=== PATIENT | female | born 1990 | race Caucasian/White ===

== ENCOUNTER → 2016-07-01 | Outpatient (CLI) | payer OTHER ==
--- NOTE | 2016-07-01 20:03 | REP ---
SOFT TISSUE ULTRASOUND CHEST WALL: 07/01/2016. Clinical history: Palpable lump right mid back, suspect lipoma, tender 2 to 3 cm size. Sonographic evaluation of the posterior chest wall in the region of the reported palpable finding shows slightly thicker right than left chest wall musculature. Subcutaneous fat thickness is unchanged on either side. No signal abnormality in the muscles of the chest wall on this study. Impression: 1. No discrete mass sonographically. I do not see an encapsulated lipoma although an infiltrative lipoma could be present and palpable, but not visible sonographically. Only minimal increased thickness of the posterior chest wall muscle layer, right compared to left (less than 1 mm difference). If you have high suspicion for soft tissue mass of a questionable nature, MRI without and with contrast may be appropriate. Signed by Wilberto Nieves MD 07/01/2016 08:21 P
== END ==
LOC: M RAD 17:50
PROVIDERS: ATTEND Family Medicine
DX: D17.1 Benign lipomatous neoplasm of skin and subcutaneous tissue of trunk (principal)

== ENCOUNTER → 2016-07-27 | Outpatient (CLI) | payer OTHER ==
--- NOTE | 2016-07-27 12:21 | REP ---
NUCLEAR GASTRIC EMPTYING SCAN: Following the intravenous administration of 1.1 mCi technetium 99m sulfur colloid in two scrambled eggs with 6 ounces of water, multiple images of the upper abdomen are performed in the anterior and posterior projections for 90 minutes. The gastric activity is measured, and the gastric emptying time is calculated. At the end of 90 minutes, 42% of the ingested activity has emptied from the stomach. T1/2 is 111 minutes. Gastric emptying is mildly delayed with a normal t1/2, 90 minutes. IMPRESSION: Gastric emptying mildly delayed. T1/2 is 111 minutes, which is above normal of 90 minutes. Signed by Lionel Chiu MD 07/27/2016 12:32 P
== END ==
LOC: M RAD 08:49
PROVIDERS: ATTEND Physician Assistant Medical
DX: R11.0 Nausea (principal)

== ENCOUNTER → 2016-07-29 | Outpatient (CLI) | payer OTHER ==
[~2016-07-29] MED LIST: BENA25CA4 PO; DEXI60CA PO; MICR1TAB10 PO; NORT50CA PO; PROBCAP4 PO; RANI300T PO; TRAZ100T4 PO; ZYRT10CA PO
--- NOTE | 2016-07-29 13:05 | REP ---
MRI RIGHT CHEST WALL WITH AND WITHOUT CONTRAST: TECHNIQUE: Coronal T2 fat sat, sagittal T2 STIR, axial T2 fat sat, coronal T1, axial T1 fat sat, coronal T1 fat sat, post IV gadolinium axial and sagittal T1 fat sat with the intravenous administration of 14 mL gadolinium. Reportedly there is a palpable abnormality in the posterior chest wall at the medial border or the scapula. The area is marked on the skin. There is no underlying abnormal signal in the soft tissues. I do not see evidence of a cystic or solid mass. There is abnormal enhancement. IMPRESSION: No MR evidence of soft tissue mass at the site of the reported palpable abnormality. Signed by Lionel Chiu MD 07/29/2016 01:22 P
== END ==
LOC: M RAD 10:53
PROVIDERS: ATTEND Surgery
DX: D17.20 Benign lipomatous neoplasm of skin and subcutaneous tissue of unspecified limb (principal)

== ENCOUNTER → 2016-08-03 | Outpatient (CLI) | payer OTHER ==
[~2016-08-03] MED LIST changes: +E-Z-GAS II EFFERVESCENT PACKET (SODIUM BICARB./CITRIC ACID/SIMETHICONE) As Ordered ONE; +E-Z-HD 98% w/w 340GM SUSP BTL As Ordered ONE; +PANT40TA2 PO
--- NOTE | 2016-08-03 17:33 | REP ---
Esophagram The procedure was performed under the direct supervision of Dr. Nieves. The images were reviewed with Dr. Nieves. A single view PA chest x-ray is submitted as a shank rander film. The superior mediastinal structures are midline. The heart size is within normal limits. The lungs are clear. Liquid barium and gas producing granules were given in the erect position as well as liquid barium in the prone oblique positions in order to perform a double contrast esophagram examination. The oral and pharyngeal stages of deglutition are unremarkable. Esophageal transport is prompt and efficient and there is no esophagitis, stricture, mucosal ring or hiatal hernia. Gastroesophageal reflux is not demonstrated on this examination. Impression: essentially unremarkable double contrast esophagram examination. 47 seconds of fluoro time was utilized for this procedure. Reviewed by NAZ 08/03/2016 03:54 PSigned by Wilberto Nieves MD 08/03/2016 05:24 P
== END ==
LOC: M RAD 09:25
PROVIDERS: ATTEND Physician Assistant Medical
DX: R13.10 Dysphagia, unspecified (principal)

== ENCOUNTER → 2016-08-06 | Outpatient (CLI) | payer OTHER ==
[~2016-08-06] VITALS: Ht 177.8 cm; Wt 72.8 kg
[~2016-08-06] MED LIST changes: -E-Z-GAS II EFFERVESCENT PACKET (SODIUM BICARB./CITRIC ACID/SIMETHICONE) As Ordered ONE; -E-Z-HD 98% w/w 340GM SUSP BTL As Ordered ONE; +LIDOCAINE 2% INJ 100 MG/5 ML SDV (FOR ANES.) As Ordered ONE; +NS 1,000 ML IV SCH; +PROPOFOL 200 MG/20 ML VIAL As Ordered ONE
--- NOTE | 2016-08-06 10:35 | ROOR ---
Patient Name: Ryann Hazel Procedure Date: 08/06/2016 10:12 AM Date of : 1990 Age: 25 Room: [facility] Gender: Female Note Status: Finalized Procedure: Upper GI endoscopy Indications: Functional Dyspepsia, Dysphagia, Nausea Providers: Arthur HILL MD Referring MD: BRENDAN TORO MD Requesting Provider: Medicines: Monitored Anesthesia Care Complications: No immediate complications. Procedure: Pre-Anesthesia Assessment: - The heart rate, respiratory rate, oxygen saturations, blood pressure, adequacy of pulmonary ventilation, and response to care were monitored throughout the procedure. The Endoscope was introduced through the mouth, and advanced to the second part of duodenum. The upper GI endoscopy was accomplished without difficulty. The patient tolerated the procedure well. Findings: The examined esophagus was normal. This was biopsied with a cold forceps for evaluation of eosinophilic esophagitis. No endoscopic abnormality was evident in the esophagus to explain the patient's complaint of dysphagia. It was decided, however, to proceed with dilation of the entire esophagus. The scope was withdrawn. Dilation was performed with a Gauthier dilator with mild resistance at 54 Fr. The dilation site was examined following endoscope reinsertion and showed no change. Minimal inflammation was found in the gastric antrum. Biopsies were taken with a cold forceps for Helicobacter pylori testing. The exam was otherwise without abnormality. Note is made of a large/compliant stomach on endoscopy. While in itself this is not a significant finding, but it may sometimes be seen with gastroparesis. Impression: - Normal esophagus. Biopsied. - No endoscopic esophageal abnormality to explain patient's dysphagia. Esophagus dilated. Dilated. - Gastritis. Biopsied. - The examination was otherwise normal. - Note is made of a large/compliant stomach on endoscopy. While in itself this is not a significant finding, it may sometimes be seen with gastroparesis. Recommendation: - Await pathology results. Call me in 2 weeks for results - Use Dexilant (dexlansoprazole) 60 mg PO daily. - Consider gastroparesis diet: - Eat smaller, more frequent meals throughout the day. - Low fat diet. - Liquid/soft foods are tolerated better than solid foods. - Low fiber/well cooked vegetables are tolerated better than high fiber/fibrous foods/raw vegetables. - Avoid medications that inhibit gastric/intestinal motility such as narcotic medications. Arthur Hill MD Arthur HILL MD 08/06/2016 10:35:12 AM This report has been signed electronically. Number of Addenda: 0 Note Initiated On: 08/06/2016 10:12 AM Estimated Blood Loss: Estimated blood loss: none.
[2016-08-06 10:50] VITALS: BP 128/71
== END | disposition home or self-care (01) ==
LOC: M OPP 09:50
PROVIDERS: ATTEND Internal Medicine Gastroenterology
DX: R13.10 Dysphagia, unspecified (principal); K29.70 Gastritis, unspecified, without bleeding; R11.0 Nausea; K30 Functional dyspepsia; R12 Heartburn; K21.9 Gastro-esophageal reflux disease without esophagitis; R14.0 Abdominal distension (gaseous); R23.3 Spontaneous ecchymoses; M79.7 Fibromyalgia; F41.9 Anxiety disorder, unspecified; F32.9 Major depressive disorder, single episode, unspecified; R51 Headache; Z88.2 Allergy status to sulfonamides; Z91.040 Latex allergy status; Z79.899 Other long term (current) drug therapy

== ENCOUNTER → 2016-08-09 | Outpatient (CLI) | payer OTHER ==
[~2016-08-09] MED LIST changes: -LIDOCAINE 2% INJ 100 MG/5 ML SDV (FOR ANES.) As Ordered ONE; -NS 1,000 ML IV SCH; -PROPOFOL 200 MG/20 ML VIAL As Ordered ONE
--- NOTE | 2016-08-09 16:48 | REP ---
LEFT FOOT: REASON FOR EXAM: Increasing right foot pain, attention arch. COMPARISON EXAM: None. FINDINGS: The joint spaces are symmetric and relatively well maintained. There is no evidence of acute fracture or destructive osseous lesion. IMPRESSION: Negative. Signed by Hill Maguire DO 08/10/2016 12:00 P
== END ==
LOC: M LRY 15:34
PROVIDERS: ATTEND Family Medicine
DX: M79.672 Pain in left foot (principal)
CPT/HCPCS: 73630; G0463

== ENCOUNTER → 2016-12-30 | Outpatient (CLI) | payer OTHER ==
[~2016-12-30] MED LIST changes: -DEXI60CA PO; +DEXI60CA2 PO; +TRAZ-136 PO; -TRAZ100T4 PO
--- NOTE | 2016-12-31 07:40 | REP ---
MRI STUDY LEFT FOOT WITHOUT CONTRAST: HISTORY: Left foot pain. TECHNIQUE: Axial, coronal, and sagittal imaging planes were utilized for T1, proton density T2-weighted scans obtain in the usual fashion. MRI FINDINGS: Cortical and medullary bone signal intensity are normal. There is no evidence of tarsal coalition, fracture, stress response in the bony structures or bony erosive change. The subtalar articulation, talar dome and tibial plafond are unremarkable. No significant joint effusion. No ligament or tendon disruption is appreciated. There is an area of nodular soft tissue thickening over the proximal insertion of the plantar fascia on the calcaneus. This thickening is relatively low in signal intensity on T1 and T2-weighted scans consistent with fibrosis. There is some T2 hyperintensity adjacent to the fascia both superficial to it and deep to it. The findings are compatible with plantar fasciitis, possibly fibromatosis plantar fasciitis. The more distal plantar fascia is unremarkable. No juxta-articular cyst or mass is seen. Study is otherwise unremarkable. IMPRESSION: Findings compatible with plantar fasciitis of the proximal plantar fascia, possibly fibromatous plantar fasciitis. Signed by Juvenal Vásquez MD 12/31/2016 08:11 A
== END ==
LOC: M RAD 16:39
PROVIDERS: ATTEND Podiatrist
DX: M79.672 Pain in left foot (principal)

== ENCOUNTER → 2017-01-26 | Outpatient (REF) | payer OTHER ==
[2017-01-26 13:08] LABS: VITAMIN B12 LEVEL 440 PG/ML
[2017-01-26 13:09] LABS: FOLATE 18.9 NG/ML
[2017-01-26 13:19] LABS: ANION GAP 9 MEQ/L (8-16); BLOOD UREA NITROGEN 11 MG/DL (7-18); CALCIUM LEVEL 9.4 MG/DL (8.5-10.1); CARBON DIOXIDE LEVEL 26 MEQ/L (21-32); CHLORIDE LEVEL 104 MEQ/L (98-107); CREATININE FOR GFR 0.91 MG/DL (0.55-1.02); GLOMERULAR FILTRATION RATE > 60.0 (>60); GLUCOSE, FASTING 74 MG/DL (70-105); MAGNESIUM LEVEL 2.4 MG/DL (1.8-2.4); POTASSIUM SERUM 4.7 MEQ/L (3.5-5.1); SODIUM LEVEL 139 MEQ/L (136-145); THYROXINE (T4) 17.3 UG/DL (4.5-12.0)
== END ==
LOC: M SFHCLERA 10:15
PROVIDERS: ATTEND Family Medicine
DX: F41.1 Generalized anxiety disorder (principal); R20.2 Paresthesia of skin; Z79.899 Other long term (current) drug therapy

== ENCOUNTER → 2017-03-18 | Outpatient (REF) | payer OTHER ==
[2017-03-18 14:39] LABS: VITAMIN B12 LEVEL 448 PG/ML (247-911)
[2017-03-18 14:40] LABS: FOLATE 14.5 NG/ML (>5.4); TOTAL PROTEIN 7.1 GM/DL (6.4-8.2)
[2017-03-21 10:51] LABS: ALBUMIN 4.08 GM/DL (3.29-5.55); ALBUMIN % 57.5 % (55.8-66.1); GAMMA GLOBULIN % 14.4 % (11.1-18.8)
[2017-03-23 00:20] LABS: Lyme Disease IgG Ab 18 kDa Ban Present (.); Lyme Disease IgG Ab 23 kDa Ban Absent (.); Lyme Disease IgG Ab 28 kDa Ban Absent (.); Lyme Disease IgG Ab 30 kDa Ban Absent (.); Lyme Disease IgG Ab 39 kDa Ban Present (.); Lyme Disease IgG Ab 41 kDa Ban Present (.); Lyme Disease IgG Ab 45 kDa Ban Present (.); Lyme Disease IgG Ab 58 kDa Ban Present (.); Lyme Disease IgG Ab 66 kDa Ban Absent (.); Lyme Disease IgG Ab 93 kDa Ban Absent (.); Lyme Disease IgG West Blot Int Positive (.); Lyme Disease IgG/IgM Antibodie 2.17 ISR (0.00-0.90); Lyme Disease IgM Ab 23 kDa Ban Absent (.); Lyme Disease IgM Ab 39 kDa Ban Absent (.); Lyme Disease IgM Ab 41 kDa Ban Absent (.); Lyme Disease IgM Ab Quantitati <0.80 index (0.00-0.79); Lyme Disease IgM West Blot Int Negative (.); SJOGREN'S ANTI SS-A <0.2 AI (0.0-0.9); SJOGREN'S ANTI SS-B <0.2 AI (0.0-0.9); VITAMIN E LEVEL 11.2 mg/L (5.3-16.8)
== END ==
LOC: M LABNEURO 09:30
PROVIDERS: ATTEND Psychiatry & Neurology Neurology
DX: G62.9 Polyneuropathy, unspecified (principal)

== ENCOUNTER → 2017-04-05 | Outpatient (REF) | payer OTHER | LOC: M SFHCLERA 12:53 | PROVIDERS: ATTEND Family Medicine | DX: R94.6 Abnormal results of thyroid function studies (principal) ==

== ENCOUNTER → 2017-04-06 | Outpatient (REF) | payer OTHER ==
[2017-04-06 15:11] LABS: THYROXINE (T4) 13.5 UG/DL (4.5-12.0)
== END ==
LOC: M SFHCLERA 10:45
PROVIDERS: ATTEND Family Medicine
DX: R94.6 Abnormal results of thyroid function studies (principal)

== ENCOUNTER → 2017-04-08 | Outpatient (CLI) | payer OTHER ==
--- NOTE | 2017-04-08 11:54 | REP ---
Thyroid ultrasound: The the thyroid is upper normal size. The right lobe measures 4.9 x 1.3 x 1.3 cm. Left lobe measures 4.8 x 1.0 x 0.8 cm. The isthmus measures 3.8 mm in thickness. There are no thyroid nodules or masses. The thyroid parenchyma is homogeneous. Impression: The thyroid is upper normal size. Essentially negative thyroid ultrasound. Signed by Lionel Almodovar MD 04/08/2017 11:46 A
== END ==
LOC: M LRY 08:37
PROVIDERS: ATTEND Family Medicine
DX: E04.9 Nontoxic goiter, unspecified (principal)